=== PATIENT | male | born 1985 | race Caucasian/White ===

== ENCOUNTER → 2016-03-24 | Day surgery (SDC) | payer OTHER ==
[~2016-03-24] MED LIST: BUPIVACAINE/EPINEPHRINE 0.25% PF 30 ML VIAL ONE; ISOSULFAN BLUE 50 MG/5 ML VIAL SQ ONE; KETOROLAC TROMETHAMINE 30 MG/ML (IVP) VIAL IV PUSH ONE; LACTATED RINGER'S 1000 ML INJ 1,000 ML ONE; MIDAZOLAM HCL 2 MG/2 ML VIAL ONE; PROPOFOL 200 MG/20 ML AMP IV ONE; ceFAZolin 2 GM PREMIX 50 ML ONE
--- NOTE | 2016-03-24 14:06 | TN ---
cc: ARYA CLOUD M.D. DATE OF SURGERY 03/24/2016 PREOPERATIVE DIAGNOSIS 1.8 mm malignant melanoma left mid back. POSTOPERATIVE DIAGNOSIS 1.8 mm malignant melanoma left mid back. PROCEDURE PERFORMED 1. Wide local excision melanoma scar 4 x 9 cm. 2. Injection and excision sentinel lymph node left axilla x8 3. Injection and excision sentinel lymph node right axilla x1 SURGEON Arya Cloud MD [facility] LUMITE INJECTOR ALISE Sanchez ANESTHESIA General LMA COMPLICATIONS None INDICATIONS FOR THE PROCEDURE Mr. Richardson is a very pleasant 31-year-old young man who was noted to have a concerning pigmented lesion on his left mid back. He came home to visit his father for the holidays and his father noticed the lesion. He took him to an under Urgent Care who immediately referred him to a digital sales assistant. The patient underwent a local excision of the pigmented skin lesion in the digital sales assistant's office and this returned malignant melanoma 1.8 mm Bhanu's level IV. The patient had gross negative margins, but he did not have an adequate excision as this was not felt to be a malignant melanoma initially. The patient was referred for surgical evaluation. The patient was seen and evaluate in the office with his father. I recommended a wide excision of the previous melanoma scar with generous margins, as well as an injection and excision of sentinel nodes. The risks and benefits of the procedure were discussed with them and he was agreeable. The patient underwent sentinel node injection this morning in radiology. He has noted have multiple nodes on the left side and a single node on the right side. I recommended bilateral sentinel node excision, bilateral axilla sentinel node excision, as well as wide local excision of the residual melanoma scar. The patient and his father were agreeable. DETAILS The patient was identified, brought to the operating room and placed supine on the operating table. After adequate general endotracheal anesthesia was achieved, the patients melanoma site was injected with 5 cc of Isosulfan blue on his left lateral back. This was then massaged into the skin. Bilateral axilla and chest was then prepped and draped in a standard surgical fashion. Attention was first direct to the left axilla. 0.25% Marcaine was injected. A transverse incision was made. Dissection proceeded into the axilla proper using electrocautery Bovie. Immediately, we encountered multiple blue nodes. The first node was grasped and excised with a rim of surrounding fatty tissue using electrocautery Bovie. This was checked and found to have a 10-second count of 8209. This node was very blue. Adjacent to this node was a second node that was also blue and it was excised and found to have a count of 705 on a 10-second count. This was labeled sentinel lymph node number two. Adjacent to this node was also a blue node. It was grasped with an Allis clamp and dissected from surrounding tissue using electrocautery Bovie. This was checked and not found to have any significant activity, but activity by the radial probe. [place] node three was therefore labeled blue only. Adjacent to this one was also another node which was very blue. This was excised and labeled sentinel node four. It did not have significant activity. [place] node five was also blue and had no significant count by the probe. The probe was then used to check the axilla. Another hot area was noted and this node was dissected out. This was labeled sentinel node number six. It was grasped and found to have some blue dye in it, but not as much as the other nodes and it was labeled sentinel node number six, found have a 10-second count of 2571. Adjacent to this was a small node that appeared benign, but did have significant activity. It was excised and found to have a 10-second count of 178 and it was not blue. [place] node number eight on the right side was also noted to have significant activity and was not blue and it was excised and found to 10-second count of 1091. SUMMARY [place] nodes one was blue had a count of 8209, sentinel node number eight had a count of 1091 and had minimal blue dye. The remaining nodes were labeled appropriately. After this was done, there were no other blue nine nodes. There were no palpable nodes. With the probe, there was no significant activity. Therefore, we elected to terminate the left axillary procedure. The wound was rinsed out with 500 cc of warm saline solution. The wound was then injected with 0.25% Marcaine and closed in two layers using a 3-0 and 4-0 Vicryl. Attention was now directed to the right axilla. In the right axilla, the approximate location of the sentinel node was identified. Quarter percent Marcaine was injected and a transverse incision was made. Dissection proceeded into the axilla proper using electrocautery Bovie. Again, we immediately encountered an enlarged blue node. This was grasped with an Allis clamp and excised using electrocautery Bovie. This was found to have a 10-second count of 1639. This was labeled right axillary sentinel node number one. After we excise this, there were no other blue nodes noted. There were no blue channels. There were no palpable nodes in the right axilla. Using the probe, there was only minimal background activity and no significant activity. As the preoperative imaging had showed, there was only a single sentinel node on the right side. The wound was irrigated out with 200 cc of normal saline solution and injected with 10 cc of 0.25% Marcaine. The wound was then closed in two layers using a 3-0 and 4-0 Vicryl. The patient was then placed up into the right lateral decubitus position with appropriate padding for hips, knees, shoulders and ankles. The left flank was then prepped and draped in the standard surgical fashion. The patient had about a 7 cm incision going in a diagonal fashion on his left back and flank. I therefore elected to size this with generous margins. Using 2 cm margins on the superior and inferior borders of the previous excision, we made a 4 x 9 cm elliptical incision after anesthetizing the skin and subcutaneous tissue with 0.25% Marcaine. The subcutaneous fat was dissected with electrocautery Bovie off of the muscular fascia. A short stitch was placed superior, a long stitch was placed lateral and the specimen was sent to pathology for analysis. Next, in order to achieve primary closure, we had then mobilized significant flaps in all directions in order to achieve primary closure. The flap mobilization was accomplished using electrocautery Bovie dissecting the skin and fat off of the muscle. Once we made flaps going out several centimeters in all directions, we were able to achieve primary closure. Primary closure was accomplished using a 2-0 Vicryl interrupted closing from the ends to the middle. We then used a 3-0 Vicryl in between these sutures. A 4-0 Vicryl was then used to sew the skin edges together. The wound was under moderate tension, but came together with the 2-0 and 3-0 Vicryl. The wound was then cleansed with normal saline solution and Mastisol and Steri-Strips were applied. A dry dressing was applied and the patient was awakened and brought to recovery in stable condition. The [employer] first grade teacher was medically necessary for the procedure due to her surgical expertise and knowledge of my surgical technique. She was present and scrubbed for the entire procedure. MD JEREL Aguayo/KHDARA /1:30 PM /1:50 PM JOJO
== END | disposition home or self-care (01) ==
LOC: ESDC 07:11
PROVIDERS: ATTEND Surgery Trauma Surgery
DX: C43.59 Malignant melanoma of other part of trunk (principal)
CPT/HCPCS: 88305; 88307; 88341; 88342; J0690; J1885; J2250; J3010; J7120; Q9968